=== PATIENT | male | born 1995 | race Caucasian/White ===

== ENCOUNTER 2018-11-08 20:05 | Emergency (ER) | payer SELFPAY ==
[~2018-11-08] VITALS: Ht 175.3 cm; Wt 86.0 kg
--- NOTE | 2018-11-08 21:02 | NUR ---
BREATHING TREATMENT GIVEN BACK TO BACK USING A MOUTH PEICE. BREATHING TECH. FOR GOOD DEPOSISITION TO THE LUNGS
[2018-11-08] MEDS ORDERED: VENTOLIN HFA IN (21:33)
[2018-11-08] MEDS ORDERED: PREDNISONE50 MG PO (21:33)
[2018-11-08 22:03] VITALS: BP 132/74
== END 2018-11-08 22:00 | disposition home or self-care (01) | DRG 203 ==
LOC: ED 20:05
DX: J45.901 Unspecified asthma with (acute) exacerbation (principal); T48.6X6A Underdosing of antiasthmatics, initial encounter; Z91.128 Patient's intentional underdosing of medication regimen for other reason

== ENCOUNTER 2018-11-22 16:31 | Emergency (ER) | payer SELFPAY ==
[~2018-11-22] VITALS: Ht 175.3 cm; Wt 81.8 kg
[~2018-11-22 16:31] MED LIST: PREDNISONE50 MG PO; VENTOLIN HFA IN
[2018-11-22 17:00] LABS: HEMATOCRIT 44.9 % (39.0-50.0); HEMOGLOBIN 15.4 g/dl (14.0-18.0); IMMATURE GRANULOCYTES 0.4 % (0.0-5.0); MEAN CELL VOLUME 93.9 fL CALC (80.0-100.0); MEAN CORPUSCULAR HGB 32.2 pG CALC (26.0-32.0); MEAN CORPUSCULAR HGB CONC 34.3 g/L CALC (32.0-36.0); NEUT# 7.47 thou/uL (1.82-7.42); RED BLOOD COUNT 4.78 mill/uL (4.70-6.10); RED CELL DISTRI WIDTH 12.2 % (11.5-15.5)
[2018-11-22 17:16] LABS: ANION GAP 13 (6-22 (CALC)); BUN 11 mg/dL (9-20); BUN/CREATININE RATIO 16 (12-20 (CALC)); CARBON DIOXIDE 25 mmol/l (22-30); CHLORIDE 105 mmol/l (95-108); CREATININE 0.7 mg/dL (0.7-1.3); GFR > 60 ML/MIN (>=60 (CALC)); GFR FOR AFR.AMER. > 60 ML/MIN (>=60 (CALC)); POTASSIUM 4.3 mmol/l (3.5-5.1); SODIUM 138 mmol/l (137-146)
[2018-11-22] MEDS ORDERED: PREDNISONE50 MG PO (18:04)
[2018-11-22] MEDS ORDERED: PROAIR HFA108 MCG/AC PO (18:04)
[2018-11-22] MEDS ORDERED: DOXYCYC MONO100 M1 PO (18:04)
[2018-11-22 19:00] VITALS: BP 108/68
== END 2018-11-22 19:07 | disposition home or self-care (01) | DRG 203 ==
LOC: ED 16:31
PROVIDERS: Family Medicine
DX: J45.901 Unspecified asthma with (acute) exacerbation (principal); F17.200 Nicotine dependence, unspecified, uncomplicated

== ENCOUNTER 2020-01-26 | Emergency (ER) | payer SELFPAY ==
[~2020-01-26] MED LIST changes: +DOXYCYC MONO100 M1 PO; +PROAIR HFA108 MCG/AC PO
[2020-01-26 15:03] LABS: HEMATOCRIT 44.6 % (39.0-50.0); HEMOGLOBIN 14.7 g/dl (14.0-18.0); IMMATURE GRANULOCYTES 0.4 % (0.0-5.0); MEAN CELL VOLUME 93.7 fL CALC (80.0-100.0); MEAN CORPUSCULAR HGB 30.9 pG CALC (26.0-32.0); NEUT# 6.85 thou/uL (1.82-7.42); RED BLOOD COUNT 4.76 mill/uL (4.70-6.10); RED CELL DISTRI WIDTH 12.4 % (11.5-15.5)
[2020-01-26] MEDS ORDERED: PREDNISONE50 MG PO (15:13)
[2020-01-26] MEDS ORDERED: PROAIR HFA108 MCG/AC PO (15:14)
[2020-01-26] MEDS ORDERED: EPIPEN 2-P0.3 MG/0.3 IM (15:14)
[2020-01-26 15:29] LABS: ALBUMIN 3.7 g/dL (3.2-5.0); ALKALINE PHOSPHATASE 64 u/l (38-126); ANION GAP 12 (6-22 (CALC)); BILIRUBIN, TOTAL 0.8 mg/dL (0.0-1.4); BUN 9 mg/dL (9-20); BUN/CREATININE RATIO 15 (12-20 (CALC)); CARBON DIOXIDE 25 mmol/l (22-30); CHLORIDE 104 mmol/l (95-108); CREATININE 0.6 mg/dL (0.7-1.3); ETHYL ALCOHOL 0 mg/dl (0-30); GFR > 60 ML/MIN (>=60 (CALC)); GFR FOR AFR.AMER. > 60 ML/MIN (>=60 (CALC)); POTASSIUM 3.8 mmol/l (3.5-5.1); SGOT/AST 197 u/l (17-59); SODIUM 137 mmol/l (137-146); TOTAL PROTEIN 7.2 g/dL (6.3-8.2)
== END 2020-01-26 15:30 | disposition left against medical advice (07) | DRG 916 ==
PROVIDERS: Family Medicine
DX: T78.01XA Anaphylactic reaction due to peanuts, initial encounter (principal); F17.200 Nicotine dependence, unspecified, uncomplicated; Z91.19 Patient's noncompliance with other medical treatment and regimen

== ENCOUNTER 2020-03-22 | Emergency (ER) | payer SELFPAY ==
[~2020-03-22] MED LIST changes: +EPIPEN 2-P0.3 MG/0.3 IM
[2020-03-22 07:35] LABS: HEMATOCRIT 41.5 % (39.0-50.0); HEMOGLOBIN 13.4 g/dl (14.0-18.0); IMMATURE GRANULOCYTES 0.4 % (0.0-5.0); MEAN CELL VOLUME 94.1 fL CALC (80.0-100.0); MEAN CORPUSCULAR HGB 30.4 pG CALC (26.0-32.0); MEAN CORPUSCULAR HGB CONC 32.3 g/dL CAL (32.0-36.0); NEUT# 4.7 thou/uL (1.82-7.42); RED BLOOD COUNT 4.41 mill/uL (4.70-6.10); RED CELL DISTRI WIDTH 12.3 % (11.5-15.5)
[2020-03-22 07:46] LABS: ALBUMIN 3.6 g/dL (3.2-5.0); ALKALINE PHOSPHATASE 77 u/l (38-126); BUN 6 mg/dL (9-20); BUN/CREATININE RATIO 11 (12-20 (CALC)); CHLORIDE 98 mmol/l (95-108); CREATININE 0.5 mg/dL (0.7-1.3); ETHYL ALCOHOL 0 mg/dl (0-30); GFR > 60 ML/MIN (>=60 (CALC)); GFR FOR AFR.AMER. > 60 ML/MIN (>=60 (CALC)); POTASSIUM 4.3 mmol/l (3.5-5.1); SGOT/AST 58 u/l (17-59); SODIUM 135 mmol/l (137-146); TOTAL PROTEIN 6.9 g/dL (6.3-8.2)
[2020-03-22 07:48] LABS: ANION GAP 9 (6-22 (CALC)); BILIRUBIN, TOTAL 0.3 mg/dL (0.0-1.4); CARBON DIOXIDE 32 mmol/l (22-30)
[2020-03-22 08:55] LABS: URINE BILIRUBIN - DIPSTICK NEGATIVE (NEGATIVE); URINE BLOOD DIPSTICK NEGATIVE (NEGATIVE); URINE COLOR YELLOW; URINE GLUCOSE - DIPSTICK NEGATIVE (NEGATIVE); URINE KETONE NEGATIVE (NEGATIVE); URINE LEUK ESTERASE NEGATIVE (NEGATIVE); URINE NITRITE - DIPSTICK NEGATIVE (Negative); URINE PH 6.5 (4.5-8.0); URINE PROTEIN - DIPSTICK NEGATIVE (NEG-TRACE); URINE SPECIFIC GRAVITY 1.015; URINE UROBILINOGEN - DIPSTICK 0.2 E.U./dL (0.2)
[2020-03-22 08:57] LABS: BARBITURATES NEGATIVE (NEGATIVE); COCAINE NEGATIVE (NEGATIVE); METHADONE NEGATIVE (NEGATIVE); OXCYCODONE POSITIVE (NEGATIVE); TETRAHYDROCANNABIONOL NEGATIVE (NEGATIVE); TRICYLIC ANTIDEPRESSANTS NEGATIVE (NEGATIVE)
== END 2020-03-22 09:22 | DRG 880 ==
PROVIDERS: Family Medicine
DX: R45.851 Suicidal ideations (principal); F17.210 Nicotine dependence, cigarettes, uncomplicated

== ENCOUNTER 2020-07-02 01:51 | Emergency (ER) | payer SELFPAY ==
[~2020-07-02] VITALS: Ht 175.3 cm; Wt 79.5 kg
--- NOTE | 2020-07-02 02:12 | NUR ---
BREATHING TREATMENT GIVEN BACK TO BACK.
[2020-07-02] MEDS ORDERED: STERAPRED DS10 MG PO (02:43)
[2020-07-02] MEDS ORDERED: ALBUTEROL SUL0.083 % IN (02:45)
[2020-07-02 03:10] VITALS: BP 110/55
== END 2020-07-02 03:10 | disposition home or self-care (01) | DRG 203 ==
LOC: ED 01:51
DX: J45.901 Unspecified asthma with (acute) exacerbation (principal); F17.210 Nicotine dependence, cigarettes, uncomplicated

== ENCOUNTER 2020-07-05 15:22 | Emergency (ER) | payer SELFPAY ==
[~2020-07-05] VITALS: Ht 175.3 cm; Wt 75.0 kg
[~2020-07-05 15:22] MED LIST changes: +ALBUTEROL SUL0.083 % IN; +STERAPRED DS10 MG PO
[2020-07-05 15:50] LABS: HEMATOCRIT 46.3 % (39.0-50.0); IMMATURE GRANULOCYTES 0.2 % (0.0-5.0); MEAN CELL VOLUME 93.3 fL CALC (80.0-100.0); MEAN CORPUSCULAR HGB 30.2 pG CALC (26.0-32.0); MEAN CORPUSCULAR HGB CONC 32.4 g/dL CAL (32.0-36.0); NEUT# 7.32 thou/uL (1.82-7.42); RED BLOOD COUNT 4.96 mill/uL (4.70-6.10)
[2020-07-05 16:17] LABS: ALBUMIN 3.9 g/dL (3.2-5.0); ALKALINE PHOSPHATASE 99 u/l (38-126); BUN 19 mg/dL (9-20); BUN/CREATININE RATIO 24 (12-20 (CALC)); CHLORIDE 101 mmol/l (95-108); CREATININE 0.8 mg/dL (0.7-1.3); ETHYL ALCOHOL 0 mg/dl (0-30); GFR > 60 ML/MIN (>=60 (CALC)); GFR FOR AFR.AMER. > 60 ML/MIN (>=60 (CALC)); SGOT/AST 68 u/l (17-59); SODIUM 134 mmol/l (137-146); TOTAL PROTEIN 7.1 g/dL (6.3-8.2)
[2020-07-05 16:18] LABS: ANION GAP 13 (6-22 (CALC)); BILIRUBIN, TOTAL 0.7 mg/dL (0.0-1.4); CARBON DIOXIDE 24 mmol/l (22-30)
[2020-07-05 17:26] LABS: URINE BILIRUBIN - DIPSTICK NEGATIVE (NEGATIVE); URINE BLOOD DIPSTICK TRACE-INTACT (NEGATIVE); URINE CLARITY CLEAR; URINE COLOR YELLOW; URINE GLUCOSE - DIPSTICK NEGATIVE (NEGATIVE); URINE KETONE TRACE mg/dL (NEGATIVE); URINE LEUK ESTERASE NEGATIVE (Negative); URINE NITRITE - DIPSTICK NEGATIVE (Negative); URINE PROTEIN - DIPSTICK NEGATIVE (NEG-TRACE); URINE SPECIFIC GRAVITY 1.025; URINE UROBILINOGEN - DIPSTICK 0.2 E.U./dL (0.2)
[2020-07-05 18:06] VITALS: BP 109/77
== END 2020-07-05 18:04 | disposition short-term general hospital (02) | DRG 881 ==
LOC: ED 15:22
DX: F32.9 Major depressive disorder, single episode, unspecified (principal); F91.8 Other conduct disorders; S61.532A Puncture wound without foreign body of left wrist, initial encounter; T23.172A Burn of first degree of left wrist, initial encounter; F15.10 Other stimulant abuse, uncomplicated; F17.200 Nicotine dependence, unspecified, uncomplicated; X78.9XXA Intentional self-harm by unspecified sharp object, initial encounter; X19.XXXA Contact with other heat and hot substances, initial encounter

== ENCOUNTER 2020-07-12 19:51 | Observation (INO) | payer SELFPAY ==
[~2020-07-12] VITALS: Ht 175.3 cm; Wt 84.0 kg
--- NOTE | 2020-07-12 19:53 | NUR ---
BY WC TO ROOM
--- NOTE | 2020-07-12 20:25 | NUR ---
PT APPEARS DROWSY, C/O DEHYDRATION S/T FALLING ASLEEP OUTSIDE AFTER USING DRUGS.
[2020-07-12 20:26] LABS: HEMATOCRIT 44.7 % (39.0-50.0); HEMOGLOBIN 14.4 g/dl (14.0-18.0); IMMATURE GRANULOCYTES 0.5 % (0.0-5.0); MEAN CELL VOLUME 93.9 fL CALC (80.0-100.0); MEAN CORPUSCULAR HGB 30.3 pG CALC (26.0-32.0); MEAN CORPUSCULAR HGB CONC 32.2 g/dL CAL (32.0-36.0); NEUT# 16.29 thou/uL (1.82-7.42); RED BLOOD COUNT 4.76 mill/uL (4.70-6.10); RED CELL DISTRI WIDTH 13.2 % (11.5-15.5)
--- NOTE | 2020-07-12 20:38 | NUR ---
EKG OBTAINED . PT APPEARS VERY DROWSY, FALLING IN AND OUT OF SLEEP DURING EKG. MD AWARE. MONITOR SHOWS SINUS TACH, RESP 94-95% RA
[2020-07-12 20:41] LABS: ALBUMIN 4.1 g/dL (3.2-5.0); ALKALINE PHOSPHATASE 108 u/l (38-126); ANION GAP 12 (6-22 (CALC)); BILIRUBIN, TOTAL 0.7 mg/dL (0.0-1.4); BUN 20 mg/dL (9-20); BUN/CREATININE RATIO 17 (12-20 (CALC)); CARBON DIOXIDE 26 mmol/l (22-30); CHLORIDE 101 mmol/l (95-108); CREATININE 1.1 mg/dL (0.7-1.3); GFR > 60 ML/MIN (>=60 (CALC)); GFR FOR AFR.AMER. > 60 ML/MIN (>=60 (CALC)); POTASSIUM 3.8 mmol/l (3.5-5.1); SODIUM 135 mmol/l (137-146); TOTAL PROTEIN 7.3 g/dL (6.3-8.2)
[2020-07-12 20:42] LABS: SGOT/AST 187 u/l (17-59)
[2020-07-12 21:07] LABS: MYOGLOBIN 2674 ng/mL (0 - 121)
--- NOTE | 2020-07-12 21:34 | NUR ---
PO FLUIDS GIVEN TO PT, HE VERBALIZED APPRECIATION. PT ASKED TO GET INTO GOWN BUT REFUSES. STATES" I'D RATHER STAY IN MY CLOTHES, MONITOR SHOWS SR, VITAL SIGNS STABLE.
--- NOTE | 2020-07-12 21:54 | NUR ---
REPORT TO GRACE LIZARRAGA.
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
[2020-07-12 23:12] VITALS: BP 104/68
[2020-07-13 04:03] VITALS: BP 96/61
--- NOTE | 2020-07-13 05:15 | NUR ---
PT C/O RIGHT FOOT NUMBNESS. PT HAS BEEN SITTING UP ON SIDE OF BED FOR SEVERAL HOURS. BOTH FEET ARE COLD TO TOUCH, WITH WEAK PULSES NOTED. ENCOURAGED PT TO ELEVATED FEET AT THIS TIME. NO APPARENT EDEMA OR INJURIES NOTED. PT QUESTION IF HE FELL PRIOR TO FALLING ASLEEP IN SHED AND STATES " I DON'T REMEMBER" WHEN ASKED WHAT THE LAST THING HE REMEMBER WAS HE STATES " I TOOK TWO KLONIPIN AND SWALLOWED SOME CRYSTAL METH AND THAT IS IT". PT HESITANT TO REMOVED PANTS TO ALLOW APPLICATION SUPPORT ADMINISTRATOR TO ASSESS FOR ANY APPARENT INJURIES, AFTER REASSURANCE AND EDUCATION ON IMPORTANCE OF ALLOWING APPLICATION SUPPORT ADMINISTRATOR TO ASSESS PT REMOVED PANTS, BUT WISHED TO PUT THEM BACK ON WHEN FINISHED. NO APPARENT REDNESS OR BRUISING INDICATING INJURY NOTED. PT PUT PANTS BACK ON AND SAT UP AT SIDE OF BED AGAIN. APPLICATION SUPPORT ADMINISTRATOR CONTINUE TO EDUCATE ON ELEVATION OF BLE. PT VERBALIZED UNDERSTANDING. WILL CONTINUE TO MONITOR.
[2020-07-13 05:43] LABS: URINE BILIRUBIN - DIPSTICK NEGATIVE (NEGATIVE); URINE BLOOD DIPSTICK NEGATIVE (NEGATIVE); URINE COLOR YELLOW; URINE GLUCOSE - DIPSTICK NEGATIVE (NEGATIVE); URINE KETONE NEGATIVE (NEGATIVE); URINE LEUK ESTERASE NEGATIVE (NEGATIVE); URINE NITRITE - DIPSTICK NEGATIVE (Negative); URINE PROTEIN - DIPSTICK NEGATIVE (NEG-TRACE); URINE UROBILINOGEN - DIPSTICK 0.2 E.U./dL (0.2)
[2020-07-13 05:48] LABS: HEMATOCRIT 46.6 % (39.0-50.0); HEMOGLOBIN 14.1 g/dl (14.0-18.0); MEAN CELL VOLUME 99.4 fL CALC (80.0-100.0); MEAN CORPUSCULAR HGB 30.1 pG CALC (26.0-32.0); MEAN CORPUSCULAR HGB CONC 30.3 g/dL CAL (32.0-36.0); RED BLOOD COUNT 4.69 mill/uL (4.70-6.10); RED CELL DISTRI WIDTH 13.2 % (11.5-15.5)
[2020-07-13 06:04] LABS: ANION GAP 11 (6-22 (CALC)); BUN 14 mg/dL (9-20); BUN/CREATININE RATIO 17 (12-20 (CALC)); CARBON DIOXIDE 25 mmol/l (22-30); CHLORIDE 101 mmol/l (95-108); CREATININE 0.8 mg/dL (0.7-1.3); GFR > 60 ML/MIN (>=60 (CALC)); GFR FOR AFR.AMER. > 60 ML/MIN (>=60 (CALC)); POTASSIUM 3.7 mmol/l (3.5-5.1); SODIUM 134 mmol/l (137-146)
[2020-07-13 06:14] LABS: CPK 2967 u/l (52-200)
[2020-07-13 07:17] VITALS: BP 95/49
--- NOTE | 2020-07-13 07:17 | NUR ---
PT SLEEPING IN BED, AWAKANED TO COMPLETE ASSESSMENT. A&O X3. PT PLEASANT AND COOPERATIVE BUT MINIMAL EYE CONTACT. PT C/O OF SLIGHT RT LEG PAIN, DENIES ANY RECENT FALLS. PULSES TO BILATERAL FEET FAINT AND COLD UPON PALPATION. POSTERIOR TIBIAL PULSES BILATERALLY, STRONG AND PALPABLE. NO OTHER NEEDS AT THIS TIME. ASSESSMENT COMPLETED. DISCUSSED POC. CALL LIGHT IN REACH. CONTINUE TO MONITOR.
--- NOTE | 2020-07-13 08:03 | NUR ---
PT note Patient is screened for PT intervention and no needs are identified at this time
[2020-07-13 10:30] VITALS: BP 103/56
[2020-07-13] MEDS ORDERED: ULTRAM50 MG PO (12:39)
--- NOTE | 2020-07-13 14:11 | NUR ---
Discharge instructions given. Patient verbalizes understanding of same. Discharged in stable condition via Wheelchair to Home with staff. All belongings sent with pt.
--- NOTE | 2020-07-13 14:24 | NUR ---
PTS RIDE HOME LEFT BEFORE PT WAS ABLE TO GO DOWNSTAIRS. AMILCAR Bradley CALLED AND APPROVAL FOR CAB FARE REC. ER REC NOTIFIED. PT TO COME BACK UP TO ROOM AND WAIT UNTIL CAB ARRIVES.
--- NOTE | 2020-07-13 14:40 | NUR ---
PT TAKEN HOME BY CAB. PT IN STABLE CONDITION
[2020-07-13 15:00] VITALS: BP 113/76
== END 2020-07-13 14:11 | disposition home or self-care (01) | DRG 558 ==
LOC: ED 19:51 → ED-I 20:50 → ED 21:24 → MS2 21:25
PROVIDERS: Emergency Medicine; ADMIT Internal Medicine; ATTEND Internal Medicine
DX: M62.82 Rhabdomyolysis (principal); D72.829 Elevated white blood cell count, unspecified; F15.10 Other stimulant abuse, uncomplicated; F11.10 Opioid abuse, uncomplicated; M79.651 Pain in right thigh; M25.551 Pain in right hip; J45.909 Unspecified asthma, uncomplicated; F32.9 Major depressive disorder, single episode, unspecified; F41.9 Anxiety disorder, unspecified; L30.9 Dermatitis, unspecified; F17.210 Nicotine dependence, cigarettes, uncomplicated; Z20.828 Contact with and (suspected) exposure to other viral communicable diseases
CPT/HCPCS: G0378

== ENCOUNTER 2020-07-14 07:28 | Emergency (ER) | payer SELFPAY ==
[~2020-07-14] VITALS: Ht 175.3 cm; Wt 84.0 kg
[~2020-07-14 07:28] MED LIST changes: +ULTRAM50 MG PO
[2020-07-14 08:09] LABS: HEMATOCRIT 41.3 % (39.0-50.0); HEMOGLOBIN 12.9 g/dl (14.0-18.0); IMMATURE GRANULOCYTES 0.7 % (0.0-5.0); MEAN CELL VOLUME 96.5 fL CALC (80.0-100.0); MEAN CORPUSCULAR HGB 30.1 pG CALC (26.0-32.0); MEAN CORPUSCULAR HGB CONC 31.2 g/dL CAL (32.0-36.0); NEUT# 5.55 thou/uL (1.82-7.42); RED BLOOD COUNT 4.28 mill/uL (4.70-6.10); RED CELL DISTRI WIDTH 12.9 % (11.5-15.5)
[2020-07-14 08:10] LABS: ALBUMIN 3.7 g/dL (3.2-5.0); ALKALINE PHOSPHATASE 74 u/l (38-126); BILIRUBIN, TOTAL 0.5 mg/dL (0.0-1.4); BUN 10 mg/dL (9-20); BUN/CREATININE RATIO 15 (12-20 (CALC)); CHLORIDE 99 mmol/l (95-108); CREATININE 0.7 mg/dL (0.7-1.3); ETHYL ALCOHOL 0 mg/dl (0-30); GFR > 60 ML/MIN (>=60 (CALC)); GFR FOR AFR.AMER. > 60 ML/MIN (>=60 (CALC)); POTASSIUM 3.5 mmol/l (3.5-5.1); SGOT/AST 294 u/l (17-59); SODIUM 135 mmol/l (137-146); TOTAL PROTEIN 6.7 g/dL (6.3-8.2)
[2020-07-14 08:11] LABS: ANION GAP 9 (6-22 (CALC)); CARBON DIOXIDE 31 mmol/l (22-30)
[2020-07-14 08:24] LABS: URINE BILIRUBIN - DIPSTICK NEGATIVE (NEGATIVE); URINE BLOOD DIPSTICK NEGATIVE (NEGATIVE); URINE COLOR YELLOW; URINE GLUCOSE - DIPSTICK NEGATIVE (NEGATIVE); URINE KETONE TRACE mg/dL (NEGATIVE); URINE LEUK ESTERASE NEGATIVE (NEGATIVE); URINE NITRITE - DIPSTICK NEGATIVE (Negative); URINE PROTEIN - DIPSTICK 100 mg/dL (NEG-TRACE); URINE SPECIFIC GRAVITY >=1.030
[2020-07-14 08:32] LABS: URINE EPITHELIAL CELLS FEW EPI/hpf (0-FEW); URINE MUCUS MODERATE hpf (NONE-FEW)
[2020-07-14 09:23] LABS: INTERNATIONAL NORMALIZED RATIO 1.1 RATIO (0.7-1.3); PROTHROMBIN TIME 11.2 SECONDS (9.0-12.5)
[2020-07-14 12:05] LABS: SGOT/AST 214 u/l (17-59)
[2020-07-14 13:30] VITALS: BP 110/60
== END 2020-07-14 13:30 | disposition home or self-care (01) | DRG 918 ==
LOC: ED 07:28
PROVIDERS: Family Medicine
DX: T43.621A Poisoning by amphetamines, accidental (unintentional), initial encounter (principal); T40.1X1A Poisoning by heroin, accidental (unintentional), initial encounter; F15.10 Other stimulant abuse, uncomplicated; F11.10 Opioid abuse, uncomplicated; J45.909 Unspecified asthma, uncomplicated; F17.200 Nicotine dependence, unspecified, uncomplicated; Y92.009 Unspecified place in unspecified non-institutional (private) residence as the place of occurrence of the external cause